=== PATIENT | female | born 1940 | race Caucasian/White ===

== ENCOUNTER 2019-03-25 13:00 | Outpatient (CLI) | payer MEDICARE, OTHER ==
--- NOTE | 2019-03-25 15:11 | PET ---
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 COMPARISON: None FINDINGS: Biodistribution:The biodistribution for the exam appears acceptable. Head and neck: There is appropriate background activity within the brain. No suspicious hypermetaboli c lymphadenopathy or mass lesions are identified. Thorax: No hypermetabolic pulmonary lesion, pleural effusion or lymphadenopathy is present. Abdomen and pelvis: There is expected background activity within the GI and systems.There is a pro minent amount of activity seen in a hydronephrotic left renal collecting system as well as within the bladder. There is a Jackson catheter in place draining the bladder; however, there is a pres ence of a cystocele that protrudes into the superior aspect of the expected upper vaginal vault. This produces some urinary radiotracer contamination that limits image detail. However, there is a hy permetabolic ring of activity seen involving the region of the vaginal vault and anterior perineal body with a peak SUV activity of 5.98. No hypermetabolic inguinal or pelvic lymph nodes are present. Osseous structures and skin: No hypermetabolic skin or osseous lesion is identified. There is an unun ited left pubic body fracture with prominent sclerosis of the fracture fragments. This may be related to an insufficiency fracture related to prior radiation therapy in this region. There are inc ompletely healed bilateral sacral insufficiency fractures. There is a focal sclerotic lesion involving the anterior left seventh rib without associated hypermetabolic uptake and may reflect a he aled rib fracture. IMPRESSION: Abnormal PET/CT. 1. There is a hypermetabolic ring of activity surrounding the expected region of the vaginal vault zhang spicious for localized malignancy. The peak SUV uptake associated with the vaginal region is 5.98. 2. No evidence of regional or distant metastatic disease. 3. Prominent activity in the bladder as well as with a urinary cystocele slightly limits image det ail of the lower pelvis. 4. Ununited insufficiency fracture of the left pubic body. Incompletely healed bilateral sacral alar insufficiency fractures. 5. Small focal sclerotic lesion in the anterior left seventh rib without associated hypermetabolic ac tivity is suspicious for healed rib fracture.
== END 2019-03-25 13:01 | disposition home or self-care (01) ==
LOC: PET 13:00
PROVIDERS: ATTEND Radiology Radiation Oncology
DX: C52 Malignant neoplasm of vagina (principal); M84.58XA Pathological fracture in neoplastic disease, other specified site, initial encounter for fracture; M89.9 Disorder of bone, unspecified
CPT/HCPCS: 78815; A9552